=== PATIENT | female | born 1945 | race Caucasian/White ===

== ENCOUNTER 2017-06-02 13:15 | Outpatient (CLI) | payer MEDICARE, OTHER | END 2017-06-02 13:16 | disposition home or self-care (01) | LOC: BICMAMMO 13:15 | PROVIDERS: ATTEND Family Medicine | DX: Z12.31 Encounter for screening mammogram for malignant neoplasm of breast (principal) | CPT/HCPCS: 77063; 77067 ==

== ENCOUNTER 2017-08-20 07:52 | Outpatient (CLI) | payer MEDICARE, OTHER ==
--- NOTE | 2017-08-20 08:58 | CT ---
LOW DOSE CT SCAN OF CHEST FOR LUNG CANCER SCREENING: Date: 08/20/17 HISTORY: Current smoker with 50 year history of smoking and occasional shortness of breath. FINDINGS: Comparison made with exam of 12/28/15. No suspicious pulmonary nodules are seen. Evidence of old granulomatous disease in the chest is again seen. Atherosclerotic vascular calcifications are again noted without evidence of aneurysmal dilatat ion of the thoracic aorta. No pleural or pericardial effusions are seen. Mild degenerative changes in the spine. IMPRESSION: Lung-RADS Category 1 - Negative. RECOMMENDATION: Continue annual screening with low dose CT in 12 months. POS: VEE
== END 2017-08-20 07:53 | disposition home or self-care (01) ==
LOC: CT 07:52
PROVIDERS: ATTEND Family Medicine
DX: F17.210 Nicotine dependence, cigarettes, uncomplicated (principal); J44.9 Chronic obstructive pulmonary disease, unspecified
CPT/HCPCS: G0297

== ENCOUNTER 2017-09-11 08:55 | Outpatient (CLI) | payer MEDICARE, OTHER | END 2017-09-11 08:56 | disposition home or self-care (01) | LOC: BICMAMMO 08:55 | PROVIDERS: ATTEND Family Medicine | DX: Z12.31 Encounter for screening mammogram for malignant neoplasm of breast (principal); Z78.0 Asymptomatic menopausal state; M85.89 Other specified disorders of bone density and structure, multiple sites; M81.0 Age-related osteoporosis without current pathological fracture | CPT/HCPCS: 77080 ==

== ENCOUNTER 2018-10-26 11:13 | Outpatient (CLI) | payer MEDICARE, OTHER ==
--- NOTE | 2018-10-26 12:05 | CT ---
CT pulmonary lung scan without IV contrast INDICATION: Lung cancer screening protocol; 50 year smoking history; recently quit smoking;wellness e xam COMPARISON: CT lung cancer screening evaluation dated August 20, 2017 FINDINGS: LUNGS: Nodules\mass: No suspicious nodule demonstrated. Emphysema: Stable mild Additional findings: Stable calcified granuloma in the left lower lobe. . Mediastinum: There are moderate calcification involving the thoracic aorta and coronary arteries. No enlarged mediastinal or axillary lymph nodes are present Upper abdomen: Partial visualization of a previously seen left renal cysts identified on a CT the abd omen and pelvis without contrast dated 06/18/2016. Adrenal glands are normal appearing. Osseous structures: No acute fracture or subluxation demonstrated. There is scattered degenerative an d osteoarthritic change present.. IMPRESSION: Lung-RADS Category 1: Negative- Continue annual screening with LDCT in 12 months. Category S: None. Category C: Not applicable.
== END 2018-10-26 11:14 | disposition home or self-care (01) ==
LOC: CT 11:13
PROVIDERS: ATTEND Family Medicine
DX: F17.210 Nicotine dependence, cigarettes, uncomplicated (principal)
CPT/HCPCS: G0297

== ENCOUNTER 2018-11-15 12:02 | Outpatient (CLI) | payer MEDICARE, OTHER ==
--- NOTE | 2018-11-15 12:45 | MMO ---
Bilateral MAMMO Bilat Screen [facility]. CLINICAL HISTORY: Patient is 73 years old and is seen for screening. The patient has the following family history of breast cancer: sister, at age 69. The patient has no personal history of cancer. VIEWS: The views performed were: bilateral craniocaudal with tomosynthesis and bilateral mediolateral oblique with tomosynthesis. FILMS COMPARED: The present examination has been compared to prior imaging studies performed at [facility] on 02/02/2006, 04/27/2015 and 06/02/2017. MAMMOGRAM FINDINGS: There are scattered fibroglandular densities. There are benign appearing calcifications seen in both breasts. There are no suspicious masses, suspicious calcifications, or new areas of architectural distortion. IMPRESSION: THERE IS NO MAMMOGRAPHIC EVIDENCE OF MALIGNANCY. A ROUTINE FOLLOW-UP MAMMOGRAM IN 1 YEAR IS RECOMMENDED. THE RESULTS OF THIS EXAM WERE SENT TO THE PATIENT. ACR BI-RADS Category 2 - Benign finding MAMMOGRAPHY NOTE: 1. A negative mammogram report should not delay a biopsy if a dominant of clinically suspicious mass is present. 2. Approximately 10% to 15% of breast cancers are not detected by mammography. 3. Adenosis and dense breasts may obscure an underlying neoplasm. Reported by: KARINA TAYLOR MD Electonically Signed: [id number]
== END 2018-11-15 12:03 | disposition home or self-care (01) ==
LOC: BICMAMMO 12:02
PROVIDERS: ATTEND Family Medicine
DX: Z12.31 Encounter for screening mammogram for malignant neoplasm of breast (principal); Z80.3 Family history of malignant neoplasm of breast
CPT/HCPCS: 77063; 77067

== ENCOUNTER 2020-12-17 13:51 | Outpatient (CLI) | payer MEDICARE, OTHER | END 2020-12-17 13:52 | disposition home or self-care (01) | LOC: BICCT 13:51 | PROVIDERS: ATTEND Family Medicine | DX: Z12.2 Encounter for screening for malignant neoplasm of respiratory organs (principal); F17.210 Nicotine dependence, cigarettes, uncomplicated; J44.9 Chronic obstructive pulmonary disease, unspecified | CPT/HCPCS: 71271 ==

== ENCOUNTER 2021-02-02 22:51 | Inpatient (IN) | payer MEDICARE, OTHER ==
[2021-02-02] MEDS ORDERED: Dextrose 5% in Water 1,000 ML IV SCH (23:45)
[2021-02-02 23:46] LABS: #Eosinphils 0.1 thou/uL (0.0-0.7); #Lymphocytes 2.1 thou/uL (1.20-3.40); #Monocytes 1.2 thou/uL (0.11-0.59); #Neutrophils 10.4 thou/uL (1.40-6.50); %Basophils 0.2 % (0.0-1.0); %Eosinophils 0.8 % (0.0-10.0); %Lymphocytes 15.4 % (21.0-51.0); %Monocytes 8.4 % (0.0-10.0); %Neutrophils 75.1 % (42.0-75.0); Hemoglobin 11.5 g/dL (12.0-16.0); Mean Corpuscular HGB CONC 33.9 g/dL (32.0-36.0); Mean Corpuscular Hemoglobin 30.7 pg (27.0-31.0); Mean Corpuscular Volume 90.4 fL (78.0-98.0); Mean Platelet Volume 6.6 fL (7.4-10.4); Platelet Count 262 thou/uL (130-400); RBC Distribution Width 11.5 % (11.5-14.5); Red Blood Cell (RBC) Count 3.75 mill/uL (4.20-5.40); White Blood Cell (WBC) Count 13.9 thou/uL (4.8-10.8)
[2021-02-03 00:09] LABS: ALT (SGPT) 24 U/L (8-55); AST (SGOT) 51 U/L (5-34); Albumin 3.9 g/dL (3.4-4.8); Alkaline Phosphatase 95 U/L (40-110); Anion Gap 15 mmol/L (10-20); BUN (Urea Nitrogen) 46 mg/dL (9.8-20.1); Bilirubin, Total 0.6 mg/dL (0.2-1.2); Calc. Creatinine Clearance 0 mL/min (70-130); Calcium 8.8 mg/dL (7.8-10.44); Carbon Dioxide 22 mmol/L (23-31); Chloride 105 mmol/L (98-107); Globulin 2.8 g/dL (2.4-3.5); Glucose 70 mg/dL (83-110); Protein, Total 6.7 g/dL (5.8-8.1); Sodium 138 mmol/L (136-145)
[2021-02-03] MEDS ORDERED: Aspirin Chewable 81 MG TAB ONE (00:17)
[2021-02-03] MEDS ORDERED: Enoxaparin Sodium 80 MG/0.8 ML SYRINGE ONE (00:43)
[2021-02-03 01:57] VITALS: BMI 30.7
[2021-02-03] MEDS ORDERED: Dextrose 5 % And 0.9 % NaCl 1,000 ML IV SCH (02:30)
[2021-02-03 02:56] LABS: Troponin I 2.427 ng/mL (< 0.028)
[2021-02-03] MEDS ORDERED: Ondansetron PF 4 MG/2 ML Vial IVP PRN (03:51)
[2021-02-03] MEDS ORDERED: Acetaminophen 325 MG TAB PO PRN (03:51)
[2021-02-03] MEDS ORDERED: Sodium Chloride 0.9% 1,000 ML IV SCH ×2 (04:00→13:45)
[2021-02-03] MEDS ORDERED: hydrALAZINE 20 MG/ML VIAL SLOW IVP PRN (04:24)
[2021-02-03] MEDS ORDERED: Dextrose 5% in Water 1,000 ML IV PRN (04:26)
[2021-02-03] MEDS ORDERED: Dextrose 50% Abboject 50 ML SYRINGE SLOW IVP PRN (04:26)
[2021-02-03] MEDS ORDERED: Cyclobenzaprine 10 MG TAB PO SCH (04:45)
[2021-02-03 05:24] LABS: #Eosinphils 0.1 thou/uL (0.0-0.7); #Lymphocytes 2.3 thou/uL (1.20-3.40); #Monocytes 0.9 thou/uL (0.11-0.59); #Neutrophils 7.9 thou/uL (1.40-6.50); %Basophils 0.4 % (0.0-1.0); %Eosinophils 0.7 % (0.0-10.0); %Lymphocytes 20.8 % (21.0-51.0); %Monocytes 7.7 % (0.0-10.0); %Neutrophils 70.3 % (42.0-75.0); Hemoglobin 10.2 g/dL (12.0-16.0); Mean Corpuscular HGB CONC 34.2 g/dL (32.0-36.0); Mean Corpuscular Volume 90.5 fL (78.0-98.0); Mean Platelet Volume 6.9 fL (7.4-10.4); Platelet Count 233 thou/uL (130-400); RBC Distribution Width 11.3 % (11.5-14.5); Red Blood Cell (RBC) Count 3.29 mill/uL (4.20-5.40); White Blood Cell (WBC) Count 11.2 thou/uL (4.8-10.8)
[2021-02-03 05:39] LABS: Hemoglobin A1c 6.2 % (4.0-6.0)
[2021-02-03 05:46] LABS: Troponin I 2.237 ng/mL (< 0.028)
[2021-02-03 05:49] LABS: Anion Gap 11 mmol/L (10-20); BUN (Urea Nitrogen) 49 mg/dL (9.8-20.1); CK (CPK) 616 U/L (29-168); Calc. Creatinine Clearance 41 mL/min (70-130); Calcium 9.2 mg/dL (7.8-10.44); Carbon Dioxide 25 mmol/L (23-31); Chloride 105 mmol/L (98-107); Glucose 128 mg/dL (83-110); Potassium 3.9 mmol/L (3.5-5.1); Sodium 137 mmol/L (136-145)
[2021-02-03 06:48] LABS: Bacteria/HPF 3+ HPF (None Seen); Bilirubin Negative (Negative); Blood, Urine Negative (Negative); Clarity Clear (Clear); Glucose, Urine (Dipstick) Normal (Negative); Ketone, Urine Negative (Negative); Leukocyte Negative Leu/uL (Negative); Nitrite Negative (Negative); Protein, Urine (Dipstick) Negative (Neg-Trace); RBC/HPF 0-3 HPF (0-3); Specific Gravity, Urine 1.017 (1.002-1.036); Squamous Epithelial 0-3 HPF (0-3); Urobilinogen Normal mg/dL (Less than 2); WBC/HPF 0-3 HPF (0-3)
[2021-02-03 06:49] LABS: Urine Culture Reflex Yes Yes
[2021-02-03] MEDS: Dextrose 5 % And 0.9 % NaCl 1,000 ML IV SCH ×3 (10:15→22:06)
[2021-02-03] MEDS ORDERED: Rosuvastatin 20 MG TAB PO SCH (13:30)
[2021-02-03] MEDS ORDERED: Communication Order-Pharmacy FS SCH (13:45)
[2021-02-03] MEDS: Gabapentin 100 MG CAP PO PRN (14:17)
[2021-02-03 15:54] LABS: SARS-CoV-2 PCR by NAA Not Detected (NotDetected)
[2021-02-03] MEDS ORDERED: HYDROcodone/Acetaminophen 5/325 mg Tablet PO PRN (19:32)
[2021-02-03] MEDS: HYDROcodone/Acetaminophen 7.5/325 mg Tablet PO PRN (20:25)
[2021-02-03] MEDS: cloNIDine 0.1 MG TAB PO SCH (20:26)
[2021-02-04] MEDS: HYDROcodone/Acetaminophen 7.5/325 mg Tablet PO PRN (00:47)
[2021-02-04] MEDS: Gabapentin 100 MG CAP PO PRN ×2 (00:48→18:25)
[2021-02-04] MEDS ORDERED: Non-Formulary Item 1 EACH (Metoprolol Succinate [Metoprolol Succinate] 200 MG Tab.Er.24h) PO SCH (08:00)
[2021-02-04 08:04] LABS: #Eosinphils 0.1 thou/uL (0.0-0.7); #Lymphocytes 1.7 thou/uL (1.20-3.40); #Monocytes 1.3 thou/uL (0.11-0.59); #Neutrophils 7.6 thou/uL (1.40-6.50); %Basophils 0.4 % (0.0-1.0); %Eosinophils 0.9 % (0.0-10.0); %Neutrophils 70.7 % (42.0-75.0); Hemoglobin 10.8 g/dL (12.0-16.0); Mean Corpuscular HGB CONC 33.6 g/dL (32.0-36.0); Mean Corpuscular Hemoglobin 30.6 pg (27.0-31.0); Mean Corpuscular Volume 91.2 fL (78.0-98.0); Mean Platelet Volume 6.9 fL (7.4-10.4); Platelet Count 220 thou/uL (130-400); RBC Distribution Width 11.3 % (11.5-14.5); Red Blood Cell (RBC) Count 3.52 mill/uL (4.20-5.40); White Blood Cell (WBC) Count 10.7 thou/uL (4.8-10.8)
[2021-02-04 08:24] LABS: Iron 27 ug/dL (50-170); Iron Binding Capacity, Total 339 mcg/dL (265-497)
[2021-02-04 08:27] LABS: Anion Gap 10 mmol/L (10-20); BUN (Urea Nitrogen) 29 mg/dL (9.8-20.1); CK (CPK) 459 U/L (29-168); Calc. Creatinine Clearance 53 mL/min (70-130); Calcium 9.3 mg/dL (7.8-10.44); Carbon Dioxide 27 mmol/L (23-31); Chloride 107 mmol/L (98-107); Glucose 113 mg/dL (83-110); Iron 25 ug/dL (50-170); Iron Binding Capacity, Total 341 mcg/dL (265-497); Magnesium 1.9 mg/dL (1.6-2.6); Potassium 4.5 mmol/L (3.5-5.1); Sodium 139 mmol/L (136-145)
[2021-02-04] MEDS: Amlodipine 10 MG TAB PO SCH (08:46)
[2021-02-04] MEDS: Rosuvastatin 20 MG TAB PO SCH (08:46)
[2021-02-04] MEDS: cloNIDine 0.1 MG TAB PO SCH ×2 (08:48→21:01)
[2021-02-04 08:51] LABS: Ferritin 72.57 ng/mL (10-291)
[2021-02-04] MEDS ORDERED: Aspirin 325 MG TAB PO SCH (09:00)
[2021-02-04] MEDS ORDERED: Rosuvastatin 20 MG TAB PO SCH (09:00)
[2021-02-04] MEDS ORDERED: Iopamidol 370 76% 50 ML VIAL FS ONE (09:26)
[2021-02-04] MEDS ORDERED: Iopamidol 370 76% 100 ML VIAL ONE (09:26)
[2021-02-04] MEDS ORDERED: Lidocaine 1% (PF) 30 ML VIAL ONE (11:32)
[2021-02-04] MEDS ORDERED: Midazolam HCl 2 mg/2 ml Vial ONE (11:54)
[2021-02-04] MEDS ORDERED: Fentanyl 100 MCG/2 ML VIAL ONE (12:04)
[2021-02-04] MEDS ORDERED: Heparin 10,000 UNITS/ 10 ML VIAL ONE (12:33)
[2021-02-04] MEDS ORDERED: Atropine Sulfate 1 mg/10 ml Syringe ONE (12:45)
[2021-02-04] MEDS ORDERED: Clopidogrel Bisulfate 300 MG TAB ONE (12:47)
[2021-02-04] MEDS ORDERED: Morphine 4 MG/ML VIAL ONE (13:38)
[2021-02-04] MEDS ORDERED: Morphine 4 MG/ML VIAL SLOW IVP PRN (13:51)
[2021-02-04] MEDS ORDERED: Sodium Chloride 0.9% 1,000 ML IV SCH (14:00)
[2021-02-05 05:32] LABS: #Lymphocytes 1.5 thou/uL (1.20-3.40); #Monocytes 1.3 thou/uL (0.11-0.59); #Neutrophils 7.7 thou/uL (1.40-6.50); %Basophils 0.3 % (0.0-1.0); %Eosinophils 0.3 % (0.0-10.0); %Lymphocytes 14.6 % (21.0-51.0); %Neutrophils 72.8 % (42.0-75.0); Hemoglobin 9.5 g/dL (12.0-16.0); Mean Corpuscular HGB CONC 34.2 g/dL (32.0-36.0); Mean Corpuscular Hemoglobin 31.3 pg (27.0-31.0); Mean Corpuscular Volume 91.4 fL (78.0-98.0); Mean Platelet Volume 6.9 fL (7.4-10.4); Platelet Count 203 thou/uL (130-400); RBC Distribution Width 11.4 % (11.5-14.5); Red Blood Cell (RBC) Count 3.02 mill/uL (4.20-5.40); White Blood Cell (WBC) Count 10.5 thou/uL (4.8-10.8)
[2021-02-05 05:53] LABS: ALT (SGPT) 19 U/L (8-55); AST (SGOT) 26 U/L (5-34); Albumin 3.1 g/dL (3.4-4.8); Alkaline Phosphatase 78 U/L (40-110); Anion Gap 12 mmol/L (10-20); BUN (Urea Nitrogen) 23 mg/dL (9.8-20.1); Bilirubin, Total 1.2 mg/dL (0.2-1.2); Calc. Creatinine Clearance 59 mL/min (70-130); Calcium 8.3 mg/dL (7.8-10.44); Carbon Dioxide 22 mmol/L (23-31); Chloride 104 mmol/L (98-107); Globulin 2.8 g/dL (2.4-3.5); Glucose 96 mg/dL (83-110); Magnesium 2.4 mg/dL (1.6-2.6); Potassium 3.8 mmol/L (3.5-5.1); Protein, Total 5.9 g/dL (5.8-8.1); Sodium 134 mmol/L (136-145)
[2021-02-05] MEDS ORDERED: Aspirin Chewable 81 MG TAB PO SCH (09:00)
[2021-02-05] MEDS ORDERED: Clopidogrel Bisulfate 75 MG TAB PO SCH (09:00)
[2021-02-05] MEDS: Amlodipine 10 MG TAB PO SCH (09:55)
[2021-02-05] MEDS: cloNIDine 0.1 MG TAB PO SCH (09:56)
[2021-02-05] MEDS: Rosuvastatin 20 MG TAB PO SCH (09:56)
[2021-02-05 12:21] VITALS: TEMP 97.6
[2021-02-05 12:22] VITALS: BP 153/68
== END 2021-02-05 15:11 | disposition home or self-care (01) | DRG 247 ==
LOC: ERS 22:51 → 2SW 02-03 00:37 → OBSVTOIN 02-04 14:38
PROVIDERS: ADMIT Internal Medicine; ATTEND Internal Medicine
PROC: 4A023N7 Measurement of Cardiac Sampling and Pressure, Left Heart, Percutaneous Approach (ICD-10-PCS; principal; 2021-02-04)
PROC: B2151ZZ Fluoroscopy of Left Heart using Low Osmolar Contrast (ICD-10-PCS; 2021-02-04)
PROC: 027034Z Dilation of Coronary Artery, One Artery with Drug-eluting Intraluminal Device, Percutaneous Approach (ICD-10-PCS; 2021-02-04)
DX: I21.4 Non-ST elevation (NSTEMI) myocardial infarction (principal); N17.9 Acute kidney failure, unspecified; E11.649 Type 2 diabetes mellitus with hypoglycemia without coma; Z20.822 Contact with and (suspected) exposure to COVID-19; I12.9 Hypertensive chronic kidney disease with stage 1 through stage 4 chronic kidney disease, or unspecified chronic kidney disease; E78.5 Hyperlipidemia, unspecified; E11.22 Type 2 diabetes mellitus with diabetic chronic kidney disease; N18.30 Chronic kidney disease, stage 3 unspecified; J44.9 Chronic obstructive pulmonary disease, unspecified; F17.210 Nicotine dependence, cigarettes, uncomplicated; D72.829 Elevated white blood cell count, unspecified; I25.10 Atherosclerotic heart disease of native coronary artery without angina pectoris; Z88.5 Allergy status to narcotic agent; Z88.8 Allergy status to other drugs, medicaments and biological substances; Z79.899 Other long term (current) drug therapy; Z79.84 Long term (current) use of oral hypoglycemic drugs; Z79.82 Long term (current) use of aspirin; Z90.710 Acquired absence of both cervix and uterus; Z90.49 Acquired absence of other specified parts of digestive tract; Z82.3 Family history of stroke; Z82.41 Family history of sudden cardiac death; D63.1 Anemia in chronic kidney disease
CPT/HCPCS: 36415; 36416; 71045; 72170; 76942; 80048; 80053; 81001; 82550; 82553; 82607; 82728; 82746; 83036; 83540; 83550; 83735; 84484; 85025; 85347; 87086; 92928; 93005; 93010; 93458; 93798; 96372; 96374; C1713; C1769; C1874; C9600; G0378; J0461; J1644; J1650; J2001; J2250; J2270; J3010; J7042; J7050; Q9967; U0003; U0005

== ENCOUNTER 2021-02-08 11:26 | Inpatient (IN) | payer MEDICARE, OTHER ==
[2021-02-08] MEDS ORDERED: Bacitracin 1 PK ONE (12:10)
[2021-02-08 13:20] LABS: Bilirubin Negative (Negative); Blood, Urine Negative (Negative); Clarity Clear (Clear); Glucose, Urine (Dipstick) Normal (Negative); Ketone, Urine Negative (Negative); Leukocyte Negative Leu/uL (Negative); Nitrite Negative (Negative); Protein, Urine (Dipstick) Negative (Neg-Trace); Specific Gravity, Urine 1.012 (1.002-1.036); Urobilinogen Normal mg/dL (Less than 2)
[2021-02-08 13:30] LABS: #Eosinphils 0.1 thou/uL (0.0-0.7); #Lymphocytes 1.4 thou/uL (1.20-3.40); #Monocytes 0.9 thou/uL (0.11-0.59); #Neutrophils 7.6 thou/uL (1.40-6.50); %Basophils 0.2 % (0.0-1.0); %Eosinophils 0.6 % (0.0-10.0); %Lymphocytes 14.3 % (21.0-51.0); %Monocytes 8.6 % (0.0-10.0); %Neutrophils 76.3 % (42.0-75.0); Hemoglobin 9.3 g/dL (12.0-16.0); Mean Corpuscular HGB CONC 33.5 g/dL (32.0-36.0); Mean Corpuscular Hemoglobin 29.8 pg (27.0-31.0); Mean Platelet Volume 6.5 fL (7.4-10.4); Platelet Count 294 thou/uL (130-400); RBC Distribution Width 11.3 % (11.5-14.5); Red Blood Cell (RBC) Count 3.12 mill/uL (4.20-5.40)
[2021-02-08 13:43] LABS: ALT (SGPT) 34 U/L (8-55); AST (SGOT) 42 U/L (5-34); Albumin 3.2 g/dL (3.4-4.8); Alkaline Phosphatase 100 U/L (40-110); Anion Gap 13 mmol/L (10-20); BUN (Urea Nitrogen) 32 mg/dL (9.8-20.1); Bilirubin, Total 0.7 mg/dL (0.2-1.2); Calc. Creatinine Clearance 0 mL/min (70-130); Calcium 8.2 mg/dL (7.8-10.44); Carbon Dioxide 23 mmol/L (23-31); Chloride 105 mmol/L (98-107); Globulin 2.6 g/dL (2.4-3.5); Glucose 87 mg/dL (83-110); Potassium 3.8 mmol/L (3.5-5.1); Protein, Total 5.8 g/dL (5.8-8.1); Sodium 137 mmol/L (136-145)
[2021-02-08 14:17] LABS: CKMB 9.6 ng/mL (0-6.6)
[2021-02-08 16:38] LABS: Troponin I 0.198 ng/mL (< 0.028)
[2021-02-08] MEDS ORDERED: Dextrose 50% Abboject 50 ML SYRINGE SLOW IVP PRN (17:45)
[2021-02-08] MEDS ORDERED: Acetaminophen 325 MG TAB PO PRN (17:45)
[2021-02-08] MEDS ORDERED: Dextrose 5% in Water 1,000 ML IV PRN (17:45)
[2021-02-08] MEDS ORDERED: Nicotine 14 MG PATCH TD PRN (17:52)
[2021-02-08 20:10] VITALS: BMI 30.2
[2021-02-08 20:57] LABS: Troponin I 0.168 ng/mL (< 0.028)
[2021-02-09 05:56] LABS: #Eosinphils 0.1 thou/uL (0.0-0.7); #Lymphocytes 1.6 thou/uL (1.20-3.40); #Monocytes 0.7 thou/uL (0.11-0.59); #Neutrophils 4.8 thou/uL (1.40-6.50); %Basophils 0.2 % (0.0-1.0); %Lymphocytes 21.5 % (21.0-51.0); %Monocytes 10.2 % (0.0-10.0); Hemoglobin 8.5 g/dL (12.0-16.0); Mean Corpuscular HGB CONC 33.5 g/dL (32.0-36.0); Mean Corpuscular Hemoglobin 30.2 pg (27.0-31.0); Mean Corpuscular Volume 90.4 fL (78.0-98.0); Mean Platelet Volume 6.7 fL (7.4-10.4); Platelet Count 261 thou/uL (130-400); RBC Distribution Width 11.2 % (11.5-14.5); Red Blood Cell (RBC) Count 2.81 mill/uL (4.20-5.40); White Blood Cell (WBC) Count 7.2 thou/uL (4.8-10.8)
[2021-02-09 06:26] LABS: Anion Gap 13 mmol/L (10-20); BUN (Urea Nitrogen) 21 mg/dL (9.8-20.1); Calc. Creatinine Clearance 69 mL/min (70-130); Calcium 8.6 mg/dL (7.8-10.44); Carbon Dioxide 22 mmol/L (23-31); Chloride 109 mmol/L (98-107); Magnesium 1.8 mg/dL (1.6-2.6); Potassium 3.6 mmol/L (3.5-5.1); Sodium 140 mmol/L (136-145)
[2021-02-09 06:40] LABS: Glucose 58 mg/dL (83-110)
[2021-02-09] MEDS ORDERED: Dextrose 5 %-0.45 % NaCl 1,000 ML IV SCH (07:45)
[2021-02-09] MEDS ORDERED: FLU VACC QS2021-22(65YR UP)/PF 240 MCG/0.7 ML SYRINGE IM ONE (09:00)
[2021-02-09 10:05] LABS: Iron 30 ug/dL (50-170); Iron Binding Capacity, Total 268 mcg/dL (265-497)
[2021-02-09] MEDS ORDERED: Aspirin 81 mg Enteric Coated Tablet PO SCH (11:00)
[2021-02-09] MEDS ORDERED: Clopidogrel Bisulfate 75 MG TAB PO SCH (11:00)
[2021-02-09 15:16] LABS: #Eosinphils 0.1 thou/uL (0.0-0.7); #Lymphocytes 1.6 thou/uL (1.20-3.40); #Neutrophils 6.5 thou/uL (1.40-6.50); %Basophils 0.3 % (0.0-1.0); %Eosinophils 1.2 % (0.0-10.0); %Lymphocytes 17.2 % (21.0-51.0); %Monocytes 10.7 % (0.0-10.0); %Neutrophils 70.6 % (42.0-75.0); Hemoglobin 9.2 g/dL (12.0-16.0); Mean Corpuscular HGB CONC 34.3 g/dL (32.0-36.0); Mean Corpuscular Hemoglobin 31.1 pg (27.0-31.0); Mean Corpuscular Volume 90.6 fL (78.0-98.0); Mean Platelet Volume 6.6 fL (7.4-10.4); Platelet Count 288 thou/uL (130-400); RBC Distribution Width 11.4 % (11.5-14.5); Red Blood Cell (RBC) Count 2.96 mill/uL (4.20-5.40); White Blood Cell (WBC) Count 9.1 thou/uL (4.8-10.8)
[2021-02-09] MEDS: Rosuvastatin 10 MG TAB PO SCH (20:43)
[2021-02-09] MEDS: cloNIDine 0.1 MG TAB PO SCH (20:43)
[2021-02-10 05:31] LABS: #Eosinphils 0.3 thou/uL (0.0-0.7); #Lymphocytes 1.7 thou/uL (1.20-3.40); #Monocytes 0.9 thou/uL (0.11-0.59); %Basophils 0.5 % (0.0-1.0); %Lymphocytes 19.2 % (21.0-51.0); %Monocytes 10.1 % (0.0-10.0); %Neutrophils 67.2 % (42.0-75.0); Hemoglobin 8.9 g/dL (12.0-16.0); Mean Corpuscular HGB CONC 33.7 g/dL (32.0-36.0); Mean Corpuscular Hemoglobin 30.5 pg (27.0-31.0); Mean Corpuscular Volume 90.6 fL (78.0-98.0); Mean Platelet Volume 6.5 fL (7.4-10.4); Platelet Count 320 thou/uL (130-400); RBC Distribution Width 11.1 % (11.5-14.5); Red Blood Cell (RBC) Count 2.91 mill/uL (4.20-5.40)
[2021-02-10 05:57] LABS: Anion Gap 12 mmol/L (10-20); BUN (Urea Nitrogen) 13 mg/dL (9.8-20.1); Calc. Creatinine Clearance 71 mL/min (70-130); Calcium 8.9 mg/dL (7.8-10.44); Carbon Dioxide 24 mmol/L (23-31); Chloride 107 mmol/L (98-107); Glucose 85 mg/dL (83-110); Potassium 4.1 mmol/L (3.5-5.1); Sodium 139 mmol/L (136-145)
[2021-02-10] MEDS: Aspirin 81 mg Enteric Coated Tablet PO SCH (09:05)
[2021-02-10] MEDS: Lisinopril 20 MG TAB PO SCH (09:06)
[2021-02-10] MEDS: Amlodipine 10 MG TAB PO SCH (09:06)
[2021-02-10] MEDS: cloNIDine 0.1 MG TAB PO SCH ×2 (09:06→21:19)
[2021-02-10] MEDS: Clopidogrel Bisulfate 75 MG TAB PO SCH (09:09)
[2021-02-10] MEDS ORDERED: Iron, Sodium Ferric Gluconate 250 MG in Sodium Chloride 0.9% 250 ML 250 ML IVPB SCH (13:30)
[2021-02-10] MEDS: Rosuvastatin 10 MG TAB PO SCH (21:19)
[2021-02-11 07:46] VITALS: TEMP 98
[2021-02-11] MEDS: Aspirin 81 mg Enteric Coated Tablet PO SCH (08:54)
[2021-02-11] MEDS: cloNIDine 0.1 MG TAB PO SCH (08:54)
[2021-02-11] MEDS: Amlodipine 10 MG TAB PO SCH (08:54)
[2021-02-11] MEDS: Clopidogrel Bisulfate 75 MG TAB PO SCH (08:55)
[2021-02-11] MEDS: Lisinopril 20 MG TAB PO SCH (08:55)
[2021-02-11] MEDS ORDERED: Iron, Sodium Ferric Gluconate 125 MG in Sodium Chloride 0.9% 100 ML IVPB SCH (09:30)
[2021-02-11 11:47] VITALS: BP 128/59
[2021-02-12 17:36] LABS: Fatty Acid Droplets Normal (.); Neutral Fats And/Or Soaps Normal (.)
== END 2021-02-11 15:10 | disposition home health service (06) | DRG 638 ==
LOC: ERS 11:26 → ERHOLD 15:32 → NEURO 18:56 → OBSVTOIN 02-09 07:32
PROVIDERS: ADMIT Internal Medicine; ATTEND Internal Medicine
DX: E11.649 Type 2 diabetes mellitus with hypoglycemia without coma (principal); D62 Acute posthemorrhagic anemia; E78.5 Hyperlipidemia, unspecified; E11.22 Type 2 diabetes mellitus with diabetic chronic kidney disease; J44.9 Chronic obstructive pulmonary disease, unspecified; N18.30 Chronic kidney disease, stage 3 unspecified; I25.10 Atherosclerotic heart disease of native coronary artery without angina pectoris; I12.9 Hypertensive chronic kidney disease with stage 1 through stage 4 chronic kidney disease, or unspecified chronic kidney disease; F17.210 Nicotine dependence, cigarettes, uncomplicated; D64.9 Anemia, unspecified; R77.8 Other specified abnormalities of plasma proteins; E86.1 Hypovolemia; K52.9 Noninfective gastroenteritis and colitis, unspecified; Z88.8 Allergy status to other drugs, medicaments and biological substances; Z79.899 Other long term (current) drug therapy; Z79.82 Long term (current) use of aspirin; Z95.5 Presence of coronary angioplasty implant and graft; Z90.49 Acquired absence of other specified parts of digestive tract; Z90.710 Acquired absence of both cervix and uterus; Z91.19 Patient's noncompliance with other medical treatment and regimen
CPT/HCPCS: 36415; 36416; 70450; 71045; 80048; 80053; 81003; 82274; 82553; 82607; 82705; 82746; 83540; 83550; 83630; 83735; 83880; 84484; 85025; 87324; 87449; 93005; 93880; 94640; G0378; J2916; J3490; J7042; J7050; J7620

== ENCOUNTER 2021-04-08 11:48 | Emergency (ER) | payer MEDICARE, OTHER ==
[2021-04-08 13:59] LABS: #Eosinphils 0.2 thou/uL (0.0-0.7); #Lymphocytes 1.2 thou/uL (1.20-3.40); #Monocytes 0.9 thou/uL (0.11-0.59); #Neutrophils 8.2 thou/uL (1.40-6.50); %Basophils 0.2 % (0.0-1.0); %Eosinophils 1.7 % (0.0-10.0); %Lymphocytes 11.1 % (21.0-51.0); %Monocytes 8.7 % (0.0-10.0); %Neutrophils 78.3 % (42.0-75.0); Hemoglobin 10.3 g/dL (12.0-16.0); Mean Corpuscular HGB CONC 33.3 g/dL (32.0-36.0); Mean Corpuscular Hemoglobin 30.1 pg (27.0-31.0); Mean Corpuscular Volume 90.5 fL (78.0-98.0); Mean Platelet Volume 6.7 fL (7.4-10.4); Platelet Count 303 thou/uL (130-400); RBC Distribution Width 12.4 % (11.5-14.5); Red Blood Cell (RBC) Count 3.41 mill/uL (4.20-5.40); White Blood Cell (WBC) Count 10.4 thou/uL (4.8-10.8)
[2021-04-08 14:19] LABS: ALT (SGPT) 10 U/L (8-55); AST (SGOT) 14 U/L (5-34); Albumin 3.8 g/dL (3.4-4.8); Alkaline Phosphatase 111 U/L (40-110); Anion Gap 14 mmol/L (10-20); BUN (Urea Nitrogen) 21 mg/dL (9.8-20.1); Bilirubin, Total 0.6 mg/dL (0.2-1.2); Calc. Creatinine Clearance 0 mL/min (70-130); Calcium 9.4 mg/dL (7.8-10.44); Carbon Dioxide 25 mmol/L (23-31); Chloride 104 mmol/L (98-107); Globulin 3.7 g/dL (2.4-3.5); Glucose 169 mg/dL (83-110); Potassium 3.7 mmol/L (3.5-5.1); Protein, Total 7.5 g/dL (5.8-8.1); Sodium 139 mmol/L (136-145)
[2021-04-08] MEDS ORDERED: Furosemide 20 MG/2 ML VIAL ONE (14:54)
[2021-04-08] MEDS ORDERED: Acetaminophen 500 MG TAB ONE (14:54)
[2021-04-08] MEDS ORDERED: Cyclobenzaprine 10 MG TAB ONE (17:38)
== END 2021-04-08 17:49 | disposition home or self-care (01) ==
LOC: ERS 11:48
DX: J32.9 Chronic sinusitis, unspecified (principal); E11.9 Type 2 diabetes mellitus without complications; E78.5 Hyperlipidemia, unspecified; E78.00 Pure hypercholesterolemia, unspecified; I10 Essential (primary) hypertension; Z79.82 Long term (current) use of aspirin; Z79.02 Long term (current) use of antithrombotics/antiplatelets
CPT/HCPCS: 36415; 71045; 80053; 83880; 84484; 85025; 93005; 96374; J1940

== ENCOUNTER 2021-12-18 12:29 | Outpatient (CLI) | payer MEDICARE, OTHER | END 2021-12-18 12:30 | disposition home or self-care (01) | LOC: BICCT 12:29 | PROVIDERS: ATTEND Family Medicine | DX: Z12.2 Encounter for screening for malignant neoplasm of respiratory organs (principal); Z87.891 Personal history of nicotine dependence; Z78.0 Asymptomatic menopausal state; M85.88 Other specified disorders of bone density and structure, other site; M81.0 Age-related osteoporosis without current pathological fracture | CPT/HCPCS: 71271; 77080 ==